=== PATIENT | female | born 1950 | race Caucasian/White ===

== ENCOUNTER → 2016-03-16 | Outpatient (CLI) | payer BC ==
[~2016-03-16] MED LIST: ACET-1256 PO; ACET-24 PO; ASPCH81X PO; DIPH-437 PO; EPP3/2 IM; FRRG PO; LEVO50TA6 PO; LORA-741 PO; MECL12.5 PO; NATURAL SUPPLEMENTS PO; NCYSR50 PO; PRLSR20 PO; RXC5 PO; SIMV40TA4 PO; SUCR1TAB PO; WLLSR/200 PO
--- NOTE | 2016-03-16 10:50 | DIAGNOSTIC IMAGING REPORT ---
MRI LUMBAR SPINE W/O CONTRAST CLINICAL HISTORY: Severe low back pain with radiculopathy. TECHNIQUE: Sagittal and axial T1, T2 and STIR images were obtained. COMPARISON STUDY: No previous studies for comparison. OBSERVATIONS: There is a focal fatty rest/hemangioma involving the L2 vertebra. There are degenerative endplate signal changes at the L4-5 level. There are no areas of marrow replacement to indicate malignancy. L1-2: There is a small central disc protrusion. There is no significant foraminal narrowing. L2-3: There is a diffuse circumferential disc bulge with mild spinal stenosis. There is minor left-sided foraminal narrowing L3-4: There is a diffuse circumferential disc bulge. There is facet joint arthropathy. There is mild to moderate spinal stenosis. There is minor bilateral foraminal narrowing L4-5: There is a small right paracentral disc protrusion. There is facet joint arthropathy. There is moderate spinal stenosis There is bilateral foraminal narrowing right more severe than left L5-S1: There is a small left paracentral disc protrusion. There is no significant spinal stenosis. There is minor bilateral foraminal narrowing. There is a suspected right-sided conjoined nerve root sleeve. The conus medullaris and cauda equina appear normal. IMPRESSION: Moderate multilevel spondylitic changes. Small central disc protrusion at the L1-2 level, small right paracentral disc protrusion at the L4-5 level, small left paracentral disc protrusion at the L5-S1 level. Mild spinal stenosis at the the L2-3 level, mild to moderate spinal stenosis at the L3-4 level, and moderate spinal stenosis at the L4-5 level.. Electronically signed by: Aron Werner M.D. 03/16/2016 10:48 AM Dictated Date/Time: 03/16/2016 10:34 AM
== END | disposition home or self-care (01) ==
LOC: C.MRIBC 09:22
PROVIDERS: ATTEND Pain Medicine Interventional Pain Medicine
DX: M54.16 Radiculopathy, lumbar region (principal); M47.896 Other spondylosis, lumbar region; M51.26 Other intervertebral disc displacement, lumbar region; M48.06 Spinal stenosis, lumbar region

== ENCOUNTER 2016-12-05 11:46 | Inpatient (IN) | payer BC, OTHER ==
[2016-10-10 14:38] VITALS: BMI 38.0
--- NOTE | 2016-10-10 15:12 | PAT Medication Instructions ---
Service Date Oct 10, 2016. Current Home Medication List Bupropion Hcl (Wellbutrin Sr), 200 MG PO QAM Epinephrine (Epipen), 0.3 MG IM UD PRN Levothyroxine Sodium (Levothyroxine Sodium), 50 MCG PO QAM Lorazepam (Ativan), 0.5 MG PO TID PRN Meclizine Hcl (Antivert), 12.5-25 MG PO TID PRN Omeprazole (Prilosec), 20 MG PO QAM Medication Instructions For Your Scheduled Surgery Epinephrine (Epipen), 0.3 MG IM UD PRN (use if needed) - Take the following medications the morning of surgery with a sip of water: Meclizine Hcl (Antivert), 12.5-25 MG PO TID PRN (if needed) Omeprazole (Prilosec), 20 MG PO QAM Levothyroxine Sodium (Levothyroxine Sodium), 50 MCG PO QAM Lorazepam (Ativan), 0.5 MG PO TID PRN (if needed) Bupropion Hcl (Wellbutrin Sr), 200 MG PO QAM - Take the following medications as scheduled the night before surgery: Meclizine Hcl (Antivert), 12.5-25 MG PO TID PRN (if needed) Lorazepam (Ativan), 0.5 MG PO TID PRN (if needed) If you have any questions please call us at [phone] or [phone] or [phone]
--- NOTE | 2016-10-10 15:49 | DIAGNOSTIC IMAGING REPORT ---
TWO VIEW CHEST CLINICAL HISTORY: Preoperative examination. FINDINGS: PA and lateral chest radiographs are compared to study dated 09/29/2012. The cardiomediastinal silhouette is unremarkable. The lungs and pleural spaces are clear. There is no pneumothorax. The skeletal structures are osteopenic. Mild degenerative change is present throughout the thoracic spine. Cholecystectomy clips are noted. IMPRESSION: No active disease in the chest. Electronically signed by: Iker Hope M.D. 10/10/2016 3:47 PM Dictated Date/Time: 10/10/2016 3:47 PM
[2016-10-10 16:08] LABS: BASO % 0.1 %; BASO ABS # 0.01 K/uL (0-0.2); COMPLETE YES; EOS % 2.1 %; HEMATOCRIT 41.2 % (37-47); IG% 0.2 %; LYMPH % 27.5 %; LYMPH ABS # 2.45 K/uL (1.2-3.4); MEAN CELL VOLUME 95.4 fL (80-100); MEAN CORPUSCULAR HEMOGLOBIN 31.5 pg (25-34); MEAN PLATELET VOLUME 10.9 fL (7.4-10.4); MONO % 6.5 %; NEUT % 63.6 %; PLATELET COUNT 248 K/uL (130-400); RED BLOOD COUNT 4.32 M/uL (4.2-5.4)
[2016-10-10 16:17] LABS: BUN/CREATININE RATIO 19.1 (10-20); CALCIUM 9.7 mg/dl (8.5-10.1); CREATININE 1.1 mg/dl (0.60-1.20); POTASSIUM 4.2 mmol/L (3.5-5.1)
[2016-10-10 16:30] LABS: INR 0.9 (0.9-1.1)
--- NOTE | 2016-11-07 12:58 | HISTORY & PHYSICAL EXAMINATION ---
DATE OF ADMISSION: 11/13/2016 CHIEF COMPLAINT: Left knee pain. HISTORY OF PRESENT ILLNESS: A 66-year-old white female, long-term patient of my partner Dr. Chaudhary who presents for surgical treatment of her left knee. She has got a long history of left knee pain and discomfort dating back over the past 10 years. She did have her knee scoped back in the 1970s, which did help her back then. Over the past 10 years she has been treated conservatively with injections which used to help quite a bit. This has become less successful over time. She has pain walking. She has pain going up and down stairs. She is fed up with discomfort and would like to have her left knee replaced. PAST MEDICAL HISTORY: 1. Hypothyroidism. 2. Obesity with BMI of 39. 3. Back pain. 4. Gastroesophageal reflux disease. PAST SURGICAL HISTORY: Include: 1. Hysterectomy. 2. Lumpectomy. 3. Left knee arthroscopy. ALLERGIES: 1. PENICILLIN. 2. BEE VENOM. 3. CODEINE. CURRENT MEDICINES: Include: 1. Bupropion ER 200 mg a day. 2. Levothyroxine 75 mcg a day. 3. Prilosec 20 mg. 4. Herbal supplements. 5. Probiotic. 6. Joint Mobility. SOCIAL HISTORY: A 66-year-old female. Does not smoke. Two drinks per week. FAMILY HISTORY: Noncontributory. REVIEW OF SYSTEMS: Negative for diabetes, neurologic problems, vascular problems, bleeding disorders. Denies any chest pain, no shortness of breath. No history of DVT or PE. PHYSICAL EXAMINATION: GENERAL: Reveals a healthy pleasant, middle-aged female. Looks to be in pretty good health. HEAD, EYES, EARS, NOSE, AND THROAT EXAMINATION: Benign. NECK: Supple. No lymphadenopathy. LUNGS: Clear to auscultation. HEART: Regular rate and rhythm. ABDOMEN: Soft, nontender, nondistended. EXTREMITY EXAMINATION: Grossly neurovascularly intact except as follows: Examination of the left knee reveals the patient walks without any obvious limp. Fairly neutral alignment to her knee. Small knee effusion. Range of motion 0-125. She does have crepitance with knee motion. Negative straight leg raise. No pain with hip motion. X-RAYS: X-rays of the left knee were reviewed. It shows mild to moderate tibiofemoral arthritis and severe patellofemoral arthritis. ASSESSMENT: A 66-year-old white female with longstanding left knee pain and discomfort, unresponsive to conservative treatment. She does have advanced patellofemoral arthritis and less severe tibiofemoral arthritis. She has failed conservative treatment. PLAN: We had a long discussion as far as treatment options including further conservative versus operative intervention. I did talk to her specifically that knee replacement not as predictable of surgery in someone who has got patellofemoral arthritis primarily. Having said that, I told her there is about 70% chance it will help her significant with knee replacement surgery and she would like to proceed. We are going to take her to the operating room and do a left total knee replacement. The risks and benefits of this procedure were explained to the patient including but not limited to DVT, PE, , infection, neurological injury, vascular injury, bleeding problem, pain, limited range of motion, stiffness, failure to relieve symptoms, incomplete relief of symptoms, need for further surgery in the future, fracture, leg length inequality, nerve palsy, need for blood transfusion. The patient understands and desires to proceed. Informed consent was obtained.
[2016-12-05] VITALS (8 sets, daily range): BP systolic 144–182; BP diastolic 77–95; PULSE 69–87; TEMP 36.3–37.5; O2SAT 96–98; Ht 160 cm; Wt 99.5 kg
[~2016-12-05] VITALS: Ht 160 cm; Wt 99.5 kg
[~2016-12-05 11:46] MED LIST changes: -ACET-1256 PO; -ACET-24 PO; +ACETAMINOPHEN 500 MG TAB PO SCH; -ASPCH81X PO; +BUPIVACAINE 0.25% 30 ML VIAL ONE; +BUPIVACAINE 0.5 % 5 MG/1 ML PF 10ML VIAL ONE; +BUPIVACAINE LIPOSOME 266 MG, BUPIVACAINE/EPINEPHRINE INJ 50 ML, SODIUM CHLORIDE 0.9% PF... INFIL SCH; +CHECK SCOPOLAMINE PATCH PLACEMENT SCH; +CLONIDINE HCL 100 MCG/ML SYRINGE ONE; -DIPH-437 PO; +FAMOTIDINE 20 MG TAB PO SCH; -FRRG PO; +GABAPENTIN 300 MG CAP PO SCH; +LACTATED RINGER'S 1000ML 1,000 ML IV SCH; +LACTATED RINGER'S 1000ML 500 ML IV SCH; +LACTATED RINGER'S 1000ML IV SCH; +MEPIVACAINE HCL 1.5% 30 ML VIAL ONE; +METOCLOPRAMIDE HCL 10 MG TAB PO SCH; -NATURAL SUPPLEMENTS PO; -NCYSR50 PO; -RXC5 PO; +SCOPOLAMINE 1.5 MG TDSY TD SCH; -SIMV40TA4 PO; -SUCR1TAB PO; +TRANEXAMIC ACID INJ 1,000 MG in SODIUM CHLORIDE 0.9% 100ML 100 ML IV SCH; +VANCOMYCIN INJ 1,500 MG in SODIUM CHLORIDE 0.9% 500ML 500 ML IV SCH
[2016-12-05] MEDS ORDERED: DIPH-437 PO (12:13)
[2016-12-05] MEDS ORDERED: NATURAL SUPPLEMENTS PO (12:13)
[2016-12-05] MEDS ORDERED: ACET-1256 PO (12:14)
[2016-12-05] MEDS ORDERED: MIDAZOLAM HCL 1 MG/ML 2ML VIAL ONE ×2 (12:26→15:00)
[2016-12-05] MEDS ORDERED: VANCOMYCIN INJ 1,500 MG in SODIUM CHLORIDE 0.9% 500ML 500 ML IV SCH (12:30)
[2016-12-05] MEDS ORDERED: BUPIVACAINE/EPINEPHRINE 0.25% 1:200,000 30 ML VIAL ONE (12:40)
[2016-12-05] MEDS ORDERED: SODIUM CHLORIDE 0.9% PF 50 ML VIAL ONE (12:40)
[2016-12-05] MEDS ORDERED: BACITRACIN 50000 UNIT VIAL ONE (12:40)
[2016-12-05] MEDS ORDERED: BUPIVACAINE LIPOSOME 1/3% 266 MG/20 ML VIAL INFIL ONE (12:40)
--- NOTE | 2016-12-05 14:13 | History & Physical Bridge Note ---
H&P Re-Evaluation Bridge Note: I have examined the patient, reviewed the History & Physical and in the interval since the performance of the History & Physical I have noted the following changes of clinical significance: No changes noted
[2016-12-05] MEDS ORDERED: PROPOFOL IV EMULSION 10 MG/ML 20 ML VIAL IV ONE ×2 (14:42→15:42)
[2016-12-05] MEDS ORDERED: EpHEDrine SULFATE INJ 50 MG/ML AMP IV PRN (14:45)
[2016-12-05] MEDS ORDERED: ATROPINE SULFATE 0.1 MG/ML 5ML SYR IV PRN (14:45)
[2016-12-05] MEDS ORDERED: NALOXONE HCL 0.4 MG/1 ML VIAL/CARP IV PRN (14:45)
[2016-12-05] MEDS ORDERED: ONDANSETRON INJ 2 MG/ML 2 ML VIAL IV PRN ×2 (14:45→16:15)
[2016-12-05] MEDS ORDERED: PROMETHAZINE HCL INJ 12.5 MG in SODIUM CHLORIDE 0.9% 50ML 50 ML IV PRN (14:45)
[2016-12-05] MEDS ORDERED: FLUMAZENIL 0.1 MG/1 ML 10 ML VIAL IV PRN (14:45)
--- NOTE | 2016-12-05 16:07 | [facility] Post Operative Brief Note ---
Immediate Operative Summary Operative Date Dec 05, 2016. Pre-Operative Diagnosis Left knee Osteoarthritis Post-Operative Diagnosis Same Procedure(s) Performed Left Total Knee Arthroplasty Surgeon Dr. Lenard Isbell Community Action Worker Surgeon(s) Femi Valenzuela Pa-C Estimated Blood Loss 50 ML Findings Left Knee DJD Fluids (cc crystalloids) 1600 cc Specimens a. Left Knee bone and tissue Drains None Anesthesia Spinal Complication(s) None Disposition Recovery Room / PACU
[2016-12-05] MEDS ORDERED: ZOLPIDEM TARTRATE 5 MG TAB PO PRN (16:15)
[2016-12-05] MEDS ORDERED: LORAZEPAM 0.5 MG TAB PO PRN (16:15)
[2016-12-05] MEDS ORDERED: BISACODYL 10 MG SUPP PR PRN (16:15)
[2016-12-05] MEDS ORDERED: MECLIZINE HCL 12.5 MG TAB PO PRN (16:15)
[2016-12-05] MEDS ORDERED: SILVER SULFADIAZINE 1% CR 50 GM JAR EXT PRN (16:15)
[2016-12-05] MEDS ORDERED: METOCLOPRAMIDE HCL INJ 5 MG/ML 2 ML VIAL IV PRN (16:15)
[2016-12-05] MEDS ORDERED: ALUMINUM/MAGNESIUM/SIMETH (MAALOX MAX) 30 ML UDC PO PRN (16:15)
[2016-12-05] MEDS ORDERED: MAGNESIUM HYDROXIDE SUSP 30 ML UDC PO PRN (16:15)
--- NOTE | 2016-12-05 16:48 | DIAGNOSTIC IMAGING REPORT ---
L KNEE 1 OR 2 VIEWS ROUTINE CLINICAL HISTORY: AP/LATERAL IN PACU LEFT KNEE postoperative evaluation COMPARISON: None. DISCUSSION: Total left knee replacement and good position. Good contact between prosthetic and underlying bone. Expected soft tissue postoperative change IMPRESSION: Anatomic alignment status post total left knee arthroplasty The above report was generated using voice recognition software. It may contain grammatical, syntax or spelling errors. Electronically signed by: Jase Headley M.D. 12/05/2016 4:47 PM Dictated Date/Time: 12/05/2016 4:46 PM
--- NOTE | 2016-12-05 17:45 | Anesthesiology Progress Note ---
Anesthesia Post Op Note Date & Time Dec 05, 2016 at 17:45 Vital Signs Pain Intensity: 0 Vital Signs Past 12 Hours Date Time Temp Pulse Resp B/P (MAP) Pulse Ox O2 Delivery O2 Flow Rate FiO2 12/05/16 17:23 71 16 92 12/05/16 17:23 71 16 12/05/16 17:21 146/75 12/05/16 17:19 36.1 72 16 142/75 93 Nasal Cannula 2 12/05/16 17:18 72 18 94 12/05/16 17:18 72 18 12/05/16 17:16 142/75 12/05/16 17:13 79 13 98 12/05/16 17:13 78 13 12/05/16 17:11 139/77 12/05/16 17:08 74 16 12/05/16 17:08 74 16 97 12/05/16 17:06 135/65 12/05/16 17:03 67 13 97 12/05/16 17:03 68 13 12/05/16 17:01 136/68 12/05/16 16:58 75 13 12/05/16 16:58 75 13 98 12/05/16 16:56 137/68 12/05/16 16:51 134/66 12/05/16 16:48 69 13 96 12/05/16 16:48 68 13 12/05/16 16:46 129/60 12/05/16 16:43 72 14 96 12/05/16 16:43 70 14 12/05/16 16:41 128/66 12/05/16 16:38 72 15 12/05/16 16:38 72 15 97 12/05/16 16:36 127/58 12/05/16 16:33 71 16 100 12/05/16 16:33 71 16 12/05/16 16:31 127/65 12/05/16 16:28 76 17 99 12/05/16 16:28 75 17 12/05/16 16:26 126/58 12/05/16 16:23 71 16 100 12/05/16 16:23 71 16 12/05/16 16:21 117/56 12/05/16 16:18 71 14 12/05/16 16:18 71 14 98 12/05/16 16:16 116/59 12/05/16 16:14 121/52 12/05/16 16:13 76 18 12/05/16 16:13 76 18 97 12/05/16 16:13 36 72 16 121/52 99 Mask 10 12/05/16 12:15 36.8 87 20 182/93 98 Room Air Notes Mental Status: alert / awake / arousable, participated in evaluation Pt Amnestic to Procedure: Yes Nausea / Vomiting: adequately controlled Pain: adequately controlled Airway Patency, RR, SpO2: stable & adequate BP & HR: stable & adequate Hydration State: stable & adequate Neuraxial Anesthesia: was administered, sensory block is resolving Anesthetic Complications: no major complications apparent
[2016-12-05] MEDS: CHECK SCOPOLAMINE PATCH PLACEMENT SCH ×2 (17:59→23:40)
[2016-12-05] MEDS: D5W AND 1/2NSS + 20MEQ KCL 1,000 ML IV SCH (18:33)
[2016-12-05] MEDS: KETOROLAC TROMETHAMINE 15 MG/ML VIAL IV. SCH ×2 (18:49→23:39)
[2016-12-05] MEDS: FERROUS GLUCONATE 324 MG TAB PO SCH (19:26)
[2016-12-05] MEDS: OXYCODONE HCL IR 5 MG TAB (IMMEDIATE RELEASE) PO PRN (20:09)
[2016-12-05] MEDS ORDERED: INFLUENZA VACCINE HIGH DOSE 65+ 0.5 ML SYR IM. ONE (21:00)
[2016-12-05] MEDS ORDERED: INFLUENZA ADMINISTRATION CHARGE ONE (21:00)
[2016-12-05] MEDS: TAPENTADOL ER 50 MG TABCR PO SCH (21:21)
[2016-12-05] MEDS: ASPIRIN 325 MG ECTAB PO SCH (21:22)
[2016-12-05] MEDS: SENNA 8.6 MG TAB PO SCH (21:22)
[2016-12-05] MEDS: DOCUSATE SODIUM 100 MG CAP PO SCH (21:23)
[2016-12-05] MEDS ORDERED: TRANEXAMIC ACID INJ 1,000 MG in SODIUM CHLORIDE 0.9% 100ML 100 ML IV SCH (22:00)
[2016-12-05] MEDS: ACETAMINOPHEN 500 MG TAB PO SCH (22:23)
[2016-12-05] MEDS: HYDROmorphone INJ 0.5 MG/0.5 ML SYR IV PRN (23:39)
--- NOTE | 2016-12-05 23:55 | OPERATIVE REPORT ---
DATE OF OPERATION: 12/05/2016 SURGEON: Dr. Lenard Isbell. TRANSFER PUMPER: DELFIN Daniel PREOPERATIVE DIAGNOSIS: Left knee degenerative joint disease. POSTOPERATIVE DIAGNOSIS: Same. PROCEDURE PERFORMED: Left cemented posterior stabilized total knee arthroplasty. COMPLICATIONS: None. ESTIMATED BLOOD LOSS: 50 mL. FLUID REPLACEMENT: 1600 mL crystalloid fluid replacement. TOURNIQUET TIME: 53 minutes at 300 mmHg. ANESTHESIA: Spinal with adductor canal block. DRAINS: None. SPECIMENS: Left knee sent for pathology. OPERATIVE INDICATIONS: The patient is a 66-year-old fairly active female who has had a long history of bilateral knee pain and discomfort, left side a bit worse than the right. She has been treated extensively with conservative care. This became less successful over time. X-rays showed advanced patellofemoral arthritis. There is less severe tibiofemoral arthritis. She has exhausted conservative care. She elected to proceed with total knee arthroplasty. She was fully made aware that knee replacement is less predictable as far as results for primarily patellofemoral arthritis. OPERATIVE FINDINGS: Operative findings revealed advanced left knee DJD. She had extensive grade 4 changes of the patella and trochlea with eburnation of both bones and extreme thinning of the patella. She also did have a fairly extensive grade 4 changes of the medial femoral condyle about 50% and some focal grade 4 changes in the lateral femoral condyles. The tibial plateau showed wear but no extensive wear. She had minimal joint effusion. OPERATIVE IMPLANTS: Operative implants consisted of: 1. Biomet Vanguard size 60 left posterior stabilized femoral component. 2. Biomet size 63 tibial tray. 3. A 10 mm posterior stabilized polyethylene insert. 4. A 28 x 8 all poly patella. OPERATIVE PROCEDURE: The patient was taken to the operating room, identified and placed on the operating table in supine position. All contact areas were appropriately padded. IV antibiotics were provided by anesthesia team. A spinal anesthetic and adductor canal block had been provided in the holding area. Laws catheter was placed in sterile fashion. Left thigh tourniquet was then placed and left lower extremity was then prepped and draped in the usual sterile fashion. The left leg was elevated and exsanguinated with Esmarch and tourniquet was placed at 300 mmHg. An anterior approach to the left knee was then performed through a longitudinal incision centered over the patella. Sharp dissection was carried through the subcutaneous tissues down to the level of the IT band and gluteal fascia. A longitudinal incision was made over the center of the knee and centered over the patella. Sharp dissection was carried through the subcutaneous tissues down to the level of the extensor mechanism. A medial parapatellar arthrotomy incision was made. Some subperiosteal dissection was carried out medially. The fat pad was resected from beneath the patellar tendon. The lateral patellofemoral ligament was released. The patella was everted and knee was flexed. The osteophytes were taken off the distal femur. The ACL and PCL were then released from the distal femur and the tibia subluxated anteriorly. External tibial alignment jig was then placed in the anterior face of the tibia and adjusted 14 mm medially. Proximal tibial cut was made to remove about 3 mm of bone from the medial side. This took a fairly similar piece both medially and laterally. The tibia was sized to a size 63. I did downsize this just a little bit in order to totally rotate the tibial tray and assist patella tracking. Attention was drawn to the femur. The distal femur was entered with a sharp drill bit. Intramedullary canal was suctioned. A left 5 degree valgus cutting guide was placed. Distal femoral cutting block was pinned in place. Distal femoral cut was made to take an additional 3 mm of bone off the distal femur. The femur was then sized to a size 60, downsized this slightly. AP cutting block was pinned parallel to the epicondylar axis, which was 8 degrees of external rotation. The anterior cut, anterior chamfer cut, posterior cut, posterior chamfer cuts were made. Box cutting guide was placed and adjusted slight lateral and box cut was made. The knee was flexed. The remnants of the medial and lateral menisci were excised. The osteophytes were taken off the posterior aspect of the femur. Trial femoral component was placed. Tibial tray was pinned in maximum external rotation and drill and stem punch were used to create defect in the proximal tibia for the tibial tray. The knee was then trialed and a 10 mm insert fit most appropriately. Attention was then drawn to the patella. The patella was cleaned of all soft tissues. The patella was markedly thin with a thickness of 15 mm, I cut this down to essentially a 10, it was sized to a size 28. We did downsize this slightly lower to optimize the patellofemoral tracking by rotating the tibial tray. The drill holes were drilled for the patella. Lateral osteophyte was removed. Patella button was placed. Knee was taken through range of motion and the patella tracked reasonably well with no thumbs test. Attention was then drawn toward placement of permanent components. All trial components were removed. A bone plug was placed in the distal femur to limit blood loss. Significant bone loss. A double batch of Palacos G cement was mixed. A Biomet size 60 left posterior stabilized femoral component, a 63 tibial tray, a 10 mm posterior stabilized polyethylene insert, a 28 x 8 all poly patella then cemented in place. The knee was brought out into full extension until cement hardened. A final cement check was then performed. Pericapsular tissues were then injected with 100 mL of a combination of 20 mL of Exparel, 30 mL of normal saline, 50 mL of 0.25% Marcaine with epinephrine. The patient did receive 1 gram of tranexamic acid. The tourniquet was then let down for final tourniquet time of 53 minutes. Hemostasis was assured with use of electrocautery. The extensor mechanism was then closed with a combination of #1 PDS suture and #1 Vicryl suture in a [id number] fashion. Extensor mechanism was checked and found to be intact. Subcutaneous tissues were then closed with 2-0 Dexon suture in a buried interrupted fashion. Skin was closed with skin klaudia. Leg was then cleaned and dried and sterile dressing of Xeroform, 4 x 4, sterile cast padding and Renzo bandage were applied. The patient then transferred to the recovery room in stable condition. The patient tolerated the procedure without complications. All needle and sponge counts were correct at the end of the operation. I attest to the content of the Intraoperative Record and any orders documented therein. Any exceptions are noted below. MTDD
[2016-12-06] VITALS (7 sets, daily range): BP systolic 101–155; BP diastolic 63–82; PULSE 56–80; TEMP 36.7–36.9; O2SAT 90–97
[2016-12-06] MEDS ORDERED: VANCOMYCIN INJ 1,500 MG in SODIUM CHLORIDE 0.9% 500ML 500 ML IV SCH ×2
[2016-12-06] MEDS: D5W AND 1/2NSS + 20MEQ KCL 1,000 ML IV SCH ×2 (03:37→14:22)
[2016-12-06] MEDS: OXYCODONE HCL IR 5 MG TAB (IMMEDIATE RELEASE) PO PRN ×4 (03:41→21:52)
[2016-12-06] MEDS: LEVOTHYROXINE 50 MCG TAB PO SCH (05:32)
[2016-12-06] MEDS: ACETAMINOPHEN 500 MG TAB PO SCH ×3 (05:33→21:54)
[2016-12-06] MEDS: KETOROLAC TROMETHAMINE 15 MG/ML VIAL IV. SCH ×3 (05:35→18:23)
[2016-12-06 07:13] LABS: HEMATOCRIT 33.9 % (37-47); MEAN CELL VOLUME 93.6 fL (80-100); MEAN CORPUSCULAR HEMOGLOBIN 30.7 pg (25-34); MEAN CORPUSCULAR HGB CONC 32.7 g/dl (32-36); MEAN PLATELET VOLUME 10.1 fL (7.4-10.4); PLATELET COUNT 193 K/uL (130-400); RED BLOOD COUNT 3.62 M/uL (4.2-5.4)
[2016-12-06 07:50] LABS: BUN/CREATININE RATIO 17.8 (10-20); CREATININE 0.96 mg/dl (0.60-1.20); POTASSIUM 4.3 mmol/L (3.5-5.1)
[2016-12-06] MEDS: CHECK SCOPOLAMINE PATCH PLACEMENT SCH ×2 (08:55→15:56)
[2016-12-06] MEDS ORDERED: NATURAL SUPPLEMENTS PO SCH (09:00)
[2016-12-06] MEDS ORDERED: NON-FORMULARY MEDICATION (Omeprazole (Prilosec) 20 MG) PO SCH (09:00)
[2016-12-06] MEDS: FERROUS GLUCONATE 324 MG TAB PO SCH ×3 (09:13→18:22)
[2016-12-06] MEDS: DOCUSATE SODIUM 100 MG CAP PO SCH ×2 (09:14→21:53)
[2016-12-06] MEDS: ASPIRIN 325 MG ECTAB PO SCH ×2 (09:14→21:53)
[2016-12-06] MEDS: TAPENTADOL ER 50 MG TABCR PO SCH ×2 (09:15→21:51)
[2016-12-06] MEDS: MULTIVITAMIN TAB PO SCH (09:15)
[2016-12-06] MEDS: BuPROPion SR 100 MG TABCR PO SCH (09:16)
[2016-12-06] MEDS: PANTOprazole SOD 40 MG TAB PO SCH (09:16)
[2016-12-06] MEDS: HYDROmorphone INJ 0.5 MG/0.5 ML SYR IV PRN ×2 (10:15→14:29)
--- NOTE | 2016-12-06 12:19 | Anesthesiology Progress Note ---
Anesthesia Post Op Note Date & Time Dec 06, 2016 at 12:18 Vital Signs Pain Intensity: 8.0 Vital Signs Past 12 Hours Date Time Temp Pulse Resp B/P (MAP) Pulse Ox O2 Delivery O2 Flow Rate FiO2 12/06/16 10:50 36.7 56 16 124/76 (92) 96 Room Air 12/06/16 08:00 Room Air 12/06/16 07:25 36.7 64 16 112/69 (83) 96 Room Air 12/06/16 03:35 36.9 77 16 101/63 (76) 92 Room Air Notes Mental Status: alert / awake / arousable, participated in evaluation Pt Amnestic to Procedure: Yes Nausea / Vomiting: adequately controlled Pain: adequately controlled, improving with treatment Airway Patency, RR, SpO2: stable & adequate BP & HR: stable & adequate Hydration State: stable & adequate Neuraxial Anesthesia: was administered, sensory block resolved Anesthetic Complications: no major complications apparent
--- NOTE | 2016-12-06 13:46 | PROGRESS NOTE ---
DATE: 12/06/2016 SUBJECTIVE: A 66-year-old female postop day #1 from a left knee replacement. She is doing pretty well. Pretty painful last night, but is feeling much better this morning. No chest pain or shortness of breath. Not feeling dizzy or lightheaded. OBJECTIVE: VITAL SIGNS: Temperature is 36.7. Vital signs stable. GENERAL: Physical examination reveals a pleasant elderly female. She is lying in bed and looks pretty comfortable this morning. LUNGS: Clear to auscultation. HEART: Regular rate and rhythm. ABDOMEN: Soft, nontender, and nondistended. EXTREMITIES: Grossly neurovascularly intact except as follows: Examination of the left lower extremity reveals the leg to be well aligned. Dressing is clean, dry and intact. She can dorsiflex and plantarflex her foot appropriately. She is neurologically intact. LABORATORY DATA: Hemoglobin is 11.1 and hematocrit 33.9. Electrolytes are stable. ASSESSMENT: A 66-year-old female postop day #1 from a left knee replacement, doing pretty well. Pain is controlled. She is neurologically intact. PLAN: 1. DVT prophylaxis including thigh-high TEDs, SCDs, and aspirin twice a day. 2. PT/OT. Weightbearing as tolerated. Left total knee protocol. 3. Pain control. Doing pretty well with current pain regimen. 4. Disposition: She is hoping to go to rehab if she can qualify. human services professional will see her today. If not, likely to home with home health.
[2016-12-06] MEDS ORDERED: NURSING VERBAL MED ORDER ONE (19:45)
[2016-12-06] MEDS ORDERED: NCYSR50 PO (21:50)
[2016-12-06] MEDS ORDERED: RXC5 PO (21:50)
[2016-12-06] MEDS ORDERED: FRRG PO (21:50)
[2016-12-06] MEDS ORDERED: ACET-24 PO (21:50)
[2016-12-06] MEDS: SENNA 8.6 MG TAB PO SCH (21:52)
--- NOTE | 2016-12-06 21:53 | Discharge Instructions ---
Discharge Instructions Date of Service Dec 06, 2016. Admission Reason for Admission: Left Knee Degenerative Joint Disease Discharge Discharge Diagnosis / Problem: Left Knee Replacement Discharge Goals Goal(s): Decrease discomfort, Improve function, Increase independence, Improve disease control, Therapeutic intervention Activity Recommendations Activity Level: Assistance Required Therapies: Physical Therapy, Occupational Therapy Weightbearing Status: Left weightbearing . Additional Information Patient informed of condition: Yes Advance Directives: Yes DNR: No Level of Care: Acute Rehab Communicable Disease: No Prognosis: Improving Instructions / Follow-Up Instructions / Follow-Up ACTIVITY RECOMMENDATIONS: Physical Therapy: * You will go to physical therapy three times each week for four to six weeks after your surgery in order to regain your knee range of motion and to retrain your knee to work properly. * It is just as important to make sure you are getting your knee perfectly straight as it is to regain your knee bend. * Taking a pain pill an hour before therapy can help you have a more productive and comfortable therapy session. Home Exercise: * You were shown a series of exercises (heel props, heel slides, etc.) in the hospital. Do these exercises three to four times each day including the exercises you were shown in physical therapy. Walking: * Get up and walk several times each day. For the first four weeks, try not to stand or walk for more than one hour at a time. If you do stand or walk for more than one hour, you will not hurt anything, but your knee and leg will likely swell. * As you feel comfortable, you may change from the walker or crutches to a cane and then to independent walking. MEDICATIONS: New Medicine: * You will likely be taking one or more of these medications: 1. Nucynta - A long-acting pain medication. Take 1 tablet twice a day for the first ten days to decrease your baseline level of pain. 2. Oxycodone - A quick and shorter-acting pain medication. Take one to two tablets every four to six hours to lessen your pain. 3. Iron Sulfate - Take two times each day for the month after surgery to help you replace the blood lost during surgery. 4. Aspirin - Thins your blood to lessen the chance of forming a blood clot. * The most common side effects of pain medicine and iron are nausea and constipation. If nausea or constipation is too much of a problem or if you have any questions about your new medicines or doses, call [facility] at [phone]. We will try to help you manage these issues. VERY IMPORTANT TO READ AND REVIEW" Pain: * The immediate post-operative period after knee replacement surgery is often quite painful. * You are given a prescription for pain medicine. You should take it, as directed, when you need it, especially before physical therapy and before going to bed. Pain that interferes with sleep is very common and can last several months. * You will likely need pain medicine for the first four to six weeks. It will not stop all of the pain. The pain will lessen and as you feel better, you may change to milder pain medicine such as Tylenol. * The most common side effects of pain medicine are nausea and constipation, so don't take more than you need. SPECIAL CARE INSTRUCTIONS: TEDs/Elastic Stockings: * The white elastic stockings help limit swelling and prevent blood clots from forming in your legs. The more you wear them, the more they work. * Wear them for six weeks after knee replacement surgery and four weeks after partial knee replacement. Prevention of Infection: * Take antibiotics one hour before any dental cleaning, dental work, urological procedure, gastrointestinal procedure or any invasive surgery in order to prevent your new joint from getting infected. * You may get the antibiotics from the doctor performing the procedure or you may call our office at before and we will call in a prescription to the pharmacy of your choice. Things to Watch For: * Drainage from the incision site that occurs more than one week after your surgery. * Severely increased knee/leg pain or swelling. * Increased redness at the incision site. * Fever above 102 degrees Fahrenheit. * Unusual chest pain or shortness of breath. * Unusual pain or burning with urination. Call [facility] at with any of the above problems or if you have any questions about your medicines or recovery. FOLLOW UP VISIT: Make an appointment to see your doctor for approximately two weeks after surgery for a progress check and staple removal by calling the office at . Current Hospital Diet Patient's current hospital diet: Regular Diet Discharge Diet Recommended Diet: Regular Diet Procedures Procedures Performed: Left Total Knee Arthroplasty Pending Studies Studies pending at discharge: no Medical Emergencies . Who to Call and When: Medical Emergencies: If at any time you feel your situation is an emergency, please call 911 immediately. . Non-Emergent Contact Non-Emergency issues call your: Surgeon . . "Provider Documentation" section prepared by Lenard Isbell. . Core Measure Problem Core Measures: None
[2016-12-07] MEDS: CHECK SCOPOLAMINE PATCH PLACEMENT SCH ×3 (00:08→16:00)
[2016-12-07] MEDS: OXYCODONE HCL IR 5 MG TAB (IMMEDIATE RELEASE) PO PRN ×4 (02:28→15:39)
[2016-12-07] MEDS: LEVOTHYROXINE 50 MCG TAB PO SCH (05:54)
[2016-12-07] MEDS: ACETAMINOPHEN 500 MG TAB PO SCH ×2 (05:55→13:53)
[2016-12-07] MEDS: KETOROLAC TROMETHAMINE 15 MG/ML VIAL IV. SCH ×3 (05:55→12:10)
[2016-12-07 07:06] VITALS: BP 164/78; PULSE 86; TEMP 37.1; O2SAT 93
--- NOTE | 2016-12-07 07:55 | PROGRESS NOTE ---
DATE: 12/07/2016 SUBJECTIVE: 66-year-old white female postop day 2 from a left knee replacement. Struggled quite a bit with pain yesterday. Denies any chest pain or shortness of breath. Not feeling dizzy or lightheaded. OBJECTIVE: VITAL SIGNS: Temperature 37.1. Vital signs stable. PHYSICAL EXAMINATION: GENERAL: Reveals a healthy pleasant, middle-aged female. Lying in bed, looks reasonably comfortable this morning. EXTREMITIES: Examination of the left leg reveals incision to be clean, dry and intact. No significant drainage. Leg is well aligned. Calf is soft and supple. She is neurologically intact. ASSESSMENT: 66-year-old white female postop day 2 from a left knee replacement, doing reasonably well. Pretty painful. PLAN: 1. DVT prophylaxis including thigh-high TEDs, SCDs, and aspirin twice a day. 2. PT/OT. Weightbearing as tolerated. Left total knee protocol. 3. Pain control. Doing reasonably well with current pain regimen. We may need to adjust this as time goes on. 4. Disposition: She is hoping to be discharged to [facility]. We are waiting to hear from insurance.
[2016-12-07] MEDS: PANTOprazole SOD 40 MG TAB PO SCH (09:03)
[2016-12-07] MEDS: DOCUSATE SODIUM 100 MG CAP PO SCH (09:04)
[2016-12-07] MEDS: MULTIVITAMIN TAB PO SCH (09:04)
[2016-12-07] MEDS: FERROUS GLUCONATE 324 MG TAB PO SCH ×3 (09:04→17:45)
[2016-12-07] MEDS: ASPIRIN 325 MG ECTAB PO SCH (09:05)
[2016-12-07] MEDS: BuPROPion SR 100 MG TABCR PO SCH (09:05)
[2016-12-07] MEDS: TAPENTADOL ER 50 MG TABCR PO SCH (09:07)
[2016-12-07 14:41] VITALS: BP 164/78; PULSE 86; TEMP 37.1; O2SAT 93
[2016-12-07 15:15] VITALS: BP 159/87; PULSE 79; TEMP 36.8; O2SAT 95
[2016-12-07 15:28] VITALS: BP 154/85; PULSE 79; TEMP 36.8; O2SAT 95
--- NOTE | 2016-12-11 00:10 | DISCHARGE SUMMARY ---
ADMITTING DIAGNOSIS: Left knee degenerative joint disease. ADMITTING PHYSICIAN AND SURGEON: Dr. Isbell. SECONDARY DIAGNOSES: Hypothyroidism, obesity, back pain, gastroesophageal reflux disease. CONSULTS: None obtained. HISTORY AND PHYSICAL EXAMINATION: Well documented in the patient's chart. HOSPITAL COURSE: The patient admitted on 12/05/2016 underwent total knee arthroplasty, tolerated the procedure well. There were no complications. She was transferred to the PACU postoperatively and later to the orthopedic floor for further care. She was given vancomycin for antibiotic prophylaxis, SHAKIRA stockings, SCDs and aspirin for DVT prophylaxis. Hemoglobin, hematocrit and vital signs were monitored during her hospital stay and remained stable. She developed some mild postoperative anemia, did not require any blood transfusions. There were no complications. By postoperative day #2, she was tolerating a general diet, pain was controlled with oral pain medicine. She was participating in physical therapy and had no signs or symptoms of deep vein thrombosis. On postop day #2, she was discharged home and set up with home health services. She was given printed discharge instructions including prescriptions for extra strength Tylenol, iron supplement, oxycodone and Nucynta. Continue her home medications with the exception of her home doses of Tylenol, which was changed. Continue physical therapy, weightbearing as tolerated, SHAKIRA stockings. Follow up in 10-12 days or sooner if there are any problems or concerns.
== END 2016-12-07 18:40 | disposition home health service (06) | DRG 470 ==
LOC: C.ACU 11:46 → C.MSW 12:00 → ENRESERV 17:08
PROVIDERS: ADMIT Orthopaedic Surgery Sports Medicine; ATTEND Orthopaedic Surgery Sports Medicine
PROC: 0SRD0J9 Replacement of Left Knee Joint with Synthetic Substitute, Cemented, Open Approach (ICD-10-PCS; principal; 2016-12-05 13:45)
DX: M17.12 Unilateral primary osteoarthritis, left knee (principal); E03.9 Hypothyroidism, unspecified; K21.9 Gastro-esophageal reflux disease without esophagitis; F32.9 Major depressive disorder, single episode, unspecified; E66.9 Obesity, unspecified; Z68.39 Body mass index [BMI] 39.0-39.9, adult; Z79.899 Other long term (current) drug therapy; Z90.710 Acquired absence of both cervix and uterus; Z88.0 Allergy status to penicillin; Z88.5 Allergy status to narcotic agent

== ENCOUNTER → 2017-07-05 | Outpatient (CLI) | payer BC, OTHER ==
[~2017-07-05] MED LIST changes: +ACET-24 PO; -ACETAMINOPHEN 500 MG TAB PO SCH; -BUPIVACAINE 0.25% 30 ML VIAL ONE; -BUPIVACAINE 0.5 % 5 MG/1 ML PF 10ML VIAL ONE; -BUPIVACAINE LIPOSOME 266 MG, BUPIVACAINE/EPINEPHRINE INJ 50 ML, SODIUM CHLORIDE 0.9% PF... INFIL SCH; -CHECK SCOPOLAMINE PATCH PLACEMENT SCH; -CLONIDINE HCL 100 MCG/ML SYRINGE ONE; -FAMOTIDINE 20 MG TAB PO SCH; +FRRG PO; -GABAPENTIN 300 MG CAP PO SCH; -LACTATED RINGER'S 1000ML 1,000 ML IV SCH; -LACTATED RINGER'S 1000ML 500 ML IV SCH; -LACTATED RINGER'S 1000ML IV SCH; -MEPIVACAINE HCL 1.5% 30 ML VIAL ONE; -METOCLOPRAMIDE HCL 10 MG TAB PO SCH; +NATURAL SUPPLEMENTS PO; +NCYSR50 PO; +RXC5 PO; -SCOPOLAMINE 1.5 MG TDSY TD SCH; -TRANEXAMIC ACID INJ 1,000 MG in SODIUM CHLORIDE 0.9% 100ML 100 ML IV SCH; -VANCOMYCIN INJ 1,500 MG in SODIUM CHLORIDE 0.9% 500ML 500 ML IV SCH
[2017-07-05 11:15] LABS: BASO % 0.3 %; BASO ABS # 0.02 K/uL (0-0.2); EOS % 2.8 %; HEMATOCRIT 38.7 % (37-47); HEMOGLOBIN 13.1 g/dL (12.0-16.0); IG# 0.02 K/uL (0.00-0.02); LYMPH % 28.6 %; LYMPH ABS # 2.03 K/uL (1.2-3.4); MEAN CELL VOLUME 94.2 fL (80-100); MEAN CORPUSCULAR HEMOGLOBIN 31.9 pg (25-34); MEAN CORPUSCULAR HGB CONC 33.9 g/dl (32-36); MEAN PLATELET VOLUME 10.9 fL (7.4-10.4); MONO % 7.5 %; MONO ABS # 0.53 K/uL (0.11-0.59); NEUT % 60.5 %; NEUT ABS # 4.29 K/uL (1.4-6.5); PLATELET COUNT 228 K/uL (130-400); RED CELL DISTRIBUTION WIDTH CV 13.9 % (11.5-14.5); RED CELL DISTRIBUTION WIDTH SD 47.8 fL (36.4-46.3); WHITE BLOOD COUNT 7.09 K/uL (4.8-10.8)
== END | disposition home or self-care (01) ==
LOC: C.LABBC 08:15
PROVIDERS: ATTEND Orthopaedic Surgery Sports Medicine
DX: M25.569 Pain in unspecified knee (principal); M79.89 Other specified soft tissue disorders